=== PATIENT | female | born 1995 | race Two or more races ===

== ENCOUNTER 2024-01-16 19:40 | Inpatient (IN) ==
[2024-01-16] MEDS ORDERED: D5 1/2 NS 1,000 ML 1,000 ML IV ONE (20:25)
[2024-01-16 20:28] LABS: BILIRUBIN,URINE NEGATIVE (NEGATIVE); BLOOD/HEMOGLOBIN,URINE 2+ (NEGATIVE); GLUCOSE, URINE NEGATIVE (NEGATIVE); KETONES,URINE NEGATIVE (NEGATIVE); LEUKOCYTE ESTERASE ,URINE NEGATIVE (NEGATIVE); NITRITES,URINE NEGATIVE (NEGATIVE); PROTEIN,URINE NEGATIVE (NEGATIVE); UROBILINOGEN,URINE NORMAL (NORMAL)
[2024-01-16] MEDS: D5 1/2 NS 1,000 ML 1,000 ML IV SCH (20:33)
[2024-01-16 20:34] LABS: APPEARANCE,URINE CLEAR (CLEAR); COLOR,URINE STRAW (YELLOW)
[2024-01-16 20:35] LABS: BACTERIA,URINE 1+ /HPF (NEGATIVE); SQUAMOUS EPITHELIAL CELL,UR MANY /HPF (NEGATIVE)
[2024-01-16 20:47] LABS: EOSINOPHILS # (AUTO) 0.1 x10^3/uL (0.0-0.2); HEMOGLOBIN 11.3 g/dL (12.0-16.0); MEAN CORPUSCULAR HEMOGLOBIN 30.7 pg (27.0-34.0); MEAN CORPUSCULAR VOLUME 87.7 fL (80.0-100.0); RED BLOOD COUNT 3.67 X10^6/uL (3.5-5.4); WHITE BLOOD COUNT 8.1 X10^3/uL (3.6-10.0)
[2024-01-16 20:53] LABS: AMNISURE ROM TEST NO MEMBRANES RUPTURE (NO RUPTURE)
[2024-01-16 20:54] LABS: BASOPHILS % (AUTO) 0.4 % (0.2-1.0); EOSINOPHILS % (AUTO) 0.6 % (0.9-2.9); HEMATOCRIT 32.2 % (36.0-47.0); LYMPHOCYTES % (AUTO) 24.7 % (21.0-51.0); MEAN PLATELET VOLUME 9.1 fL (7.4-11.0); MONOCYTES # (AUTO) 0.5 x10^3/uL (0.3-0.8); MONOCYTES % (AUTO) 6.2 % (0.0-13.0); NEUTROPHILS # (AUTO) 5.5 x10^3/uL (2.2-4.8); NEUTROPHILS % (AUTO) 68.1 % (42.0-75.0); PLATELET COUNT 232 X10^3/uL (150.0-450.0); RED CELL DISTRIBUTION WIDTH 14.9 % (11.6-16.5)
[2024-01-16 20:57] LABS: ALANINE AMINOTRANSFERASE 12 Units/L (12-78); ALBUMIN 2.4 g/dL (3.4-5.0); ALKALINE PHOSPHATASE 175 Units/L (46-116); ASPARTATE AMINO TRANSFERASE 13 Units/L (15-37); BLOOD UREA NITROGEN 6 mg/dL (7-18); CALCIUM 8.6 mg/dL (8.5-10.1); CARBON DIOXIDE 24.9 mmol/L (21-32); CHLORIDE 107 mmol/L (98-107); COR CA(FOR HYPOALB) 9.9 mg/dL (8.5-10.1); CREATININE 0.82 mg/dL (0.55-1.02); GLUCOSE 107 mg/dL (65-99); POTASSIUM 3.7 mmol/L (3.5-5.1); SODIUM 139 mmol/L (136-145); TOTAL PROTEIN 6.5 g/dL (6.4-8.2); eGFR NON BLACK RACES > 60 (>60)
[2024-01-16] MEDS: LR 1,000 ML IV 1,000 ML IV ONE ×2 (20:58→21:01)
[2024-01-16] MEDS: OFIRMEV IV 1000 MG VIAL 1,000 MG/100 ML VIAL IV ONE (21:34)
[2024-01-16] MEDS: DILAUDID INJ ONE (21:34)
[2024-01-16] MEDS: DECADRON INJ ONE (21:34)
[2024-01-16] MEDS: PEPCID 20 MG VIAL ONE (21:34)
[2024-01-16] MEDS: ZOFRAN INJ 4 MG VIAL ONE (21:34)
[2024-01-16] MEDS: TORADOL 30 MG VIAL ONE (21:34)
[2024-01-16] MEDS: XYLOCAINE 2 % (PLAIN) ONE (21:35)
[2024-01-16] MEDS: MARCAINE SPINAL ONE (21:35)
[2024-01-16] MEDS ORDERED: ZOFRAN INJ 4 MG VIAL IVP PRN (21:53)
[2024-01-16] MEDS ORDERED: BENADRYL INJ 50 MG VIAL IVP PRN ×2 (21:53→21:54)
[2024-01-16] MEDS ORDERED: DILAUDID INJ IVP PRN (21:53)
[2024-01-16] MEDS ORDERED: NARCAN INJ IVP PRN ×2 (21:54→23:17)
[2024-01-16] MEDS ORDERED: REGLAN INJ 10 MG VIAL IVP PRN (21:54)
[2024-01-16] MEDS ORDERED: PERCOCET TAB 5/325 MG PO PRN (21:54)
[2024-01-16] MEDS: ANCEF VIAL 1 GRAM ONE (21:58)
[2024-01-16] MEDS: ANCEF VIAL 1 GRAM IVP ONE (21:58)
[2024-01-16] MEDS: NS 100 ML IV 100 ML ONE (21:58)
[2024-01-16] MEDS: REGLAN INJ 10 MG VIAL ONE (22:28)
[2024-01-16] MEDS: PITOCIN ONE (22:34)
[2024-01-16] MEDS ORDERED: TORADOL 30 MG VIAL IVP PRN (23:17)
[2024-01-16] MEDS ORDERED: ZOFRAN INJ 4 MG VIAL ONE (23:32)
[2024-01-16] MEDS: ZOFRAN INJ 4 MG VIAL IVP ONE (23:44)
[2024-01-17 02:12] LABS: RAPID PLASMA REAGIN NONREACTIVE (NONREACTIVE)
[2024-01-17] MEDS: PHENERGAN INJ 25 MG IM PRN (02:14)
[2024-01-17] MEDS ORDERED: ADACEL or BOOSTRIX TDaP VACCINE IM ONE (02:26)
[2024-01-17] MEDS: ADACEL or BOOSTRIX TDaP VACCINE IM ONE (02:39)
[2024-01-17 05:37] LABS: HEMATOCRIT 27.3 % (36.0-47.0); HEMOGLOBIN 9.4 g/dL (12.0-16.0)
[2024-01-17] MEDS: PRENATAL PLUS PO SCH (08:48)
[2024-01-17] MEDS: NS 100 ML IV 100 ML with VENOFER 400 MG IV NR (16:10)
[2024-01-17] MEDS: MOTRIN TAB 800 MG PO PRN (16:27)
[2024-01-17] MEDS: PERCOCET TAB 5/325 MG PO PRN (20:06)
[2024-01-17] MEDS: MYLICON TAB 80 MG CHEW PO PRN (20:07)
[2024-01-17] MEDS: OXYTOCIN 20 UNIT/1,000 ML-NS 20 UNIT/1,000 ML PLAST..BAG IV SCH (22:48)
[2024-01-18 05:42] LABS: HEMOGLOBIN 7.2 g/dL (12.0-16.0); MEAN CORPUSCULAR HEMOGLOBIN 30.5 pg (27.0-34.0)
[2024-01-18 05:48] LABS: BLOOD UREA NITROGEN 6 mg/dL (7-18); CALCIUM 8.6 mg/dL (8.5-10.1); CARBON DIOXIDE 26.9 mmol/L (21-32); CHLORIDE 106 mmol/L (98-107); CREATININE 0.85 mg/dL (0.55-1.02); GLUCOSE 102 mg/dL (65-99); SODIUM 140 mmol/L (136-145); eGFR NON BLACK RACES > 60 (>60)
[2024-01-18 05:51] LABS: BASOPHILS % (AUTO) 0.3 % (0.2-1.0); EOSINOPHILS # (AUTO) 0.1 x10^3/uL (0.0-0.2); EOSINOPHILS % (AUTO) 0.5 % (0.9-2.9); HEMATOCRIT 20.8 % (36.0-47.0); LYMPHOCYTES # (AUTO) 2.6 X10^3/uL (1.3-2.9); LYMPHOCYTES % (AUTO) 19.3 % (21.0-51.0); MEAN CORPUSCULAR HGB CONC 34.5 g/dL (33.0-35.0); MEAN CORPUSCULAR VOLUME 88.3 fL (80.0-100.0); MEAN PLATELET VOLUME 8.7 fL (7.4-11.0); MONOCYTES # (AUTO) 0.8 x10^3/uL (0.3-0.8); MONOCYTES % (AUTO) 6.1 % (0.0-13.0); NEUTROPHILS % (AUTO) 73.8 % (42.0-75.0); PLATELET COUNT 185 X10^3/uL (150.0-450.0); RED BLOOD COUNT 2.36 X10^6/uL (3.5-5.4); RED CELL DISTRIBUTION WIDTH 14.7 % (11.6-16.5); WHITE BLOOD COUNT 13.5 X10^3/uL (3.6-10.0)
[2024-01-18 06:07] LABS: ALANINE AMINOTRANSFERASE 14 Units/L (12-78); ALKALINE PHOSPHATASE 127 Units/L (46-116); ASPARTATE AMINO TRANSFERASE 22 Units/L (15-37); COR CA(FOR HYPOALB) 10.2 mg/dL (8.5-10.1); TOTAL PROTEIN 5.5 g/dL (6.4-8.2)
[2024-01-18] MEDS: NS 100 ML IV 100 ML with VENOFER 400 MG IV ONE (06:55)
[2024-01-18] MEDS: INFeD or DEXFERRUM 25 MG in NS 100 ML IV 100 ML IV ONE (08:31)
[2024-01-18 10:20] VITALS: TEMP 98.3
[2024-01-18] MEDS: INFeD or DEXFERRUM 1,175 MG in NS 500 ML IV 500 ML IV ONE (10:28)
[2024-01-18 14:21] VITALS: BP 101/60; PULSE 89; RESP 21; O2SAT 100
== END 2024-01-18 14:30 | disposition home or self-care (01) | DRG 788 ==
LOC: ER 19:40 → LD 20:58 → MED/SURG 23:02
PROVIDERS: ADMIT Obstetrics & Gynecology Obstetrics; ATTEND Obstetrics & Gynecology Obstetrics
DX: M25.519 Pain in unspecified shoulder; Z3A.40 40 weeks gestation of pregnancy; N85.8 Other specified noninflammatory disorders of uterus; Z37.0 Single live birth; O34.211 Maternal care for low transverse scar from previous cesarean delivery; M54.2 Cervicalgia